=== PATIENT | male | born 1970 | race Two or more races ===

== ENCOUNTER 2020-02-11 09:29 | Emergency (ER) | payer SELFPAY ==
[~2020-02-11] VITALS: Ht 175.3 cm; Wt 136.4 kg
[2020-02-11 09:36] VITALS: Ht 175.3 cm; Wt 136.4 kg
[2020-02-11] MEDS ORDERED: GLIPIZIDE10 MG PO (09:37)
[2020-02-11] MEDS ORDERED: GLUCOPHAGE1000 MG PO (09:38)
[2020-02-11] MEDS ORDERED: LIPITOR20 MG PO (09:38)
[2020-02-11 09:56] LABS: BASOPHILS 0.3 % (0-2); EOSINOPHILS 3.2 % (0-7); HEMATOCRIT 48.2 % (42.0-54.0); HEMOGLOBIN 16.1 g/dL (13.5-17.5); IMMATURE GRANULOCYTES 0.1 % (0-5); LYMPHOCYTES 27.2 % (15-50); MCH 31.1 pg (26.0-34.0); MCHC 33.4 g/dL (31.0-37.0); MCV 93.1 fL (80.0-100.0); MEAN PLATELET VOLUME 9.4 fL (7.4-10.4); MONOCYTES 4.1 % (2-11); NEUTROPHILS 65.1 % (40-80); PLATELET COUNT 210 10x3/uL (130-400); RBC 5.18 10x6/uL (4.20-6.10); RDW 12.7 % (11.5-14.5); WBC 9.2 10x3/uL (4.8-10.8)
[2020-02-11 10:05] LABS: APTT 25.6 SECONDS (22.8-39.4); CALC OSMOLALITY 280 mosm/kg (275-300); CALCIUM 8.3 mg/dL (8.5-10.1); CARBON DIOXIDE 33.6 mmol/L (21.0-32.0); CHLORIDE - SERUM 97 mmol/L (98-107); CREATININE - SERUM 1.2 mg/dL (0.6-1.3); GLUCOSE 314 mg/dL (74-106); INR 0.97 (0.85-1.17); POTASSIUM - SERUM 3.7 mmol/L (3.5-5.1); PROTIME 12.8 SECONDS (11.6-15.0); SODIUM 135 mmol/L (136-145); UREA NITROGEN 9 mg/dL (7-18); eGFR NON AFRICAN AMERICAN 68 mL/min (90-120)
[2020-02-11 10:20] LABS: ALBUMIN 3.5 g/dL (3.4-5.0); ALKALINE PHOSPHATASE 119 U/L (30-120); ALT (SGPT) 34 U/L (10-68); BILIRUBIN - TOTAL 0.48 mg/dL (0.2-1.3); CKMB 0.7 U/L (0.0-3.6); CREATINE KINASE 55 UL (21-232); MAGNESIUM - SERUM 1.5 mg/dL (1.8-2.4); PROTEIN - SERUM 7.4 g/dL (6.4-8.2); THYROID STIMULATING HORMONE 0.73 uIU/mL (0.36-3.74); TROPONIN-I 0.043 ng/mL (0.000-0.060)
[2020-02-11] MEDS ORDERED: PREDNISONE20 MG PO (11:05)
[2020-02-11] MEDS ORDERED: ZOVIRAX800 MG PO (11:05)
[2020-02-11 11:20] VITALS: BP 156/103
== END 2020-02-11 11:20 | disposition home or self-care (01) ==
LOC: D.ER 09:29
PROVIDERS: Family Medicine
DX: G51.0 Bell's palsy (principal); E11.9 Type 2 diabetes mellitus without complications; I10 Essential (primary) hypertension; Z79.84 Long term (current) use of oral hypoglycemic drugs